=== PATIENT | male | born 1990 | race Two or more races ===

== ENCOUNTER 2024-03-19 18:01 | Observation (INO) | payer OTHER ==
[2024-03-19 18:15] VITALS: BMI 31.9
[2024-03-19] MEDS ORDERED: IBUPROFEN 600 MG TABLET (FP) PO ONE (18:52)
[2024-03-19] MEDS ORDERED: ACETAMINOPHEN 500 MG TABLET (FP) ONE (18:53)
[2024-03-19] MEDS: ACETAMINOPHEN 500 MG TABLET (FP) PO ONE (18:53)
[2024-03-19] MEDS: IBUPROFEN 600 MG TABLET (FP) PO ONE (18:55)
[2024-03-19 18:58] LABS: BASO % 0.5 % (0-2.0); EOS % 0.1 % (0-4.5); HEMATOCRIT 44.1 % (35.4-49); HEMOGLOBIN 15.4 GM/dL (11.7-16.9); LYMPH % 16.7 % (8-40); MCH 30.8 pg (25.7-33.7); MCHC 34.9 g/dl (32.0-35.9); MEAN CELL VOLUME 88.1 fl (80-96); MEAN PLT VOLUME 10.1 fl (7.5-11.1); MONO % 7.5 % (3.8-10.2); NEUT % 75.2 % (42.8-82.8); PLATELET COUNT 183 10^3/uL (134-434); RBC 5.01 M/mm3 (4.00-5.60); RDW 13.4 % (11.9-15.9); WHITE BLOOD COUNT 9.7 K/mm3 (4.0-10.0)
[2024-03-19 19:17] LABS: POTASSIUM 3.3 mmol/L (3.5-5.1)
[2024-03-19 19:18] LABS: CALCIUM 9.4 mg/dL (8.5-10.1)
[2024-03-19 19:19] LABS: ALBUMIN 3.9 g/dl (3.4-5.0); BLOOD UREA NITROGEN 15.4 mg/dL (7-18)
[2024-03-19 19:22] LABS: CREATININE 1.4 mg/dL (0.55-1.3)
[2024-03-19 19:23] LABS: BILIRUBIN,TOTAL 0.6 mg/dL (0.2-1); TOT PROT 7.8 g/dl (6.4-8.2)
[2024-03-19] MEDS ORDERED: CEFTRIAXONE 1 G/50 ML PREMIX 50 ML IVPB ONE (19:55)
[2024-03-19] MEDS: CEFTRIAXONE 1 GM in DEXTROSE 5%-WATER - 100 ML IVPB ONE (20:04)
[2024-03-19] MEDS: SODIUM CHLORIDE 1,000 ML IV STA (20:04)
[2024-03-19] MEDS ORDERED: AZITHROMYCIN IVPB 500 MG/250 ML BAG IVPB ONE (20:15)
[2024-03-19] MEDS: AZITHROMYCIN IVPB 500 MG in DEXTROSE 5%-WATER - 250 ML IVPB ONE (20:22)
[2024-03-19 20:36] LABS: PH,URINE 6.5 (5.0-8.0); URINE APPEARANCE CLEAR; URINE BILIRUBIN NEGATIVE (NEGATIVE); URINE COLOR YELLOW; URINE GLUCOSE (UA) NEGATIVE (NEGATIVE); URINE KETONE TRACE (NEGATIVE); URINE LEUK ESTERASE NEGATIVE (NEGATIVE); URINE NITRITE NEGATIVE (NEGATIVE); URINE PROTEIN 2+ (NEGATIVE); URINE UROBILINOGEN 0.2 mg/dL (0.2-1.0)
[2024-03-19 20:39] LABS: EPI CELLS 1.2 /uL (0-25.1); URINE RBC 12.1 /uL (0-23.9); URINE WBC 1.2 /uL (0-25.8)
[2024-03-19 20:40] LABS: URINE BACTERIA 2.8 /uL (0-1359)
[2024-03-20 00:53] LABS: HIV INTERPRETATION NEGATIVE (NEGATIVE)
[2024-03-20] MEDS: POTASSIUM CHLORIDE ORAL LIQUID 20 MEQ/15 ML PO ONE (03:29)
[2024-03-20] MEDS: HEPARIN NA (PORCINE) 5,000 UNITS/ML 1ML VIAL SQ SCH (05:28)
[2024-03-20] MEDS: SODIUM CHLORIDE 1,000 ML IV SCH (06:34)
[2024-03-20] MEDS ORDERED: ALBUTEROL SO4 2.5/IPRATROPIUM 0.5 INH SOL 3 ML VIAL.NEB. NEB PRN (07:45)
[2024-03-20 08:44] LABS: BASO % 0.4 % (0-2.0); EOS % 0.3 % (0-4.5); HEMATOCRIT 42.6 % (35.4-49); HEMOGLOBIN 14.4 GM/dL (11.7-16.9); LYMPH % 14.1 % (8-40); MCH 30.3 pg (25.7-33.7); MCHC 33.8 g/dl (32.0-35.9); MEAN CELL VOLUME 89.7 fl (80-96); MEAN PLT VOLUME 10.6 fl (7.5-11.1); MONO % 6.9 % (3.8-10.2); NEUT % 78.3 % (42.8-82.8); PLATELET COUNT 186 10^3/uL (134-434); RBC 4.75 M/mm3 (4.00-5.60); RDW 13.3 % (11.9-15.9); WHITE BLOOD COUNT 8.2 K/mm3 (4.0-10.0)
[2024-03-20 09:10] LABS: POTASSIUM 4.1 mmol/L (3.5-5.1)
[2024-03-20 09:12] LABS: ALBUMIN 3.6 g/dl (3.4-5.0); CALCIUM 9.3 mg/dL (8.5-10.1)
[2024-03-20 09:13] LABS: MAGNESIUM 2.2 mg/dL (1.8-2.4)
[2024-03-20 09:16] LABS: CREATININE 1.1 mg/dL (0.55-1.3)
[2024-03-20 09:17] LABS: BILIRUBIN,TOTAL 0.6 mg/dL (0.2-1); PHOSPHOROUS 2.7 mg/dL (2.5-4.9); TOT PROT 7.3 g/dl (6.4-8.2)
[2024-03-20] MEDS ORDERED: amLODIPine BESYLATE 5 MG TABLET (FP) PO SCH (10:00)
[2024-03-20] MEDS: POTASSIUM CHLORIDE ORAL LIQUID 20 MEQ/15 ML PO SCH (12:08)
[2024-03-20 15:24] LABS: HIV INTERPRETATION NEGATIVE (NEGATIVE)
[2024-03-20] MEDS: AZITHROMYCIN IVPB 250 MG in DEXTROSE 5%-WATER - 250 ML IVPB SCH (20:56)
[2024-03-20] MEDS: CEFTRIAXONE 1 G/50 ML PREMIX 50 ML IVPB SCH (21:00)
[2024-03-21 07:42] LABS: POTASSIUM 4.2 mmol/L (3.5-5.1)
[2024-03-21 07:46] LABS: ALBUMIN 3.5 g/dl (3.4-5.0); BLOOD UREA NITROGEN 11.6 mg/dL (7-18); CALCIUM 9.8 mg/dL (8.5-10.1)
[2024-03-21 07:51] LABS: BILIRUBIN,TOTAL 0.6 mg/dL (0.2-1); TOT PROT 7.7 g/dl (6.4-8.2)
[2024-03-21 13:41] VITALS: RESP 18
[2024-03-21 16:35] VITALS: BP 142/88; PULSE 88; TEMP 98.2
[2024-03-21] MEDS: AMOX TR/POT CLAV 875MG/125MG TABLETS (FP) PO SCH (16:59)
== END 2024-03-21 18:28 | disposition home or self-care (01) ==
LOC: JER 18:01 → INTOOBSV 19:59 → JERBED 19:59 → J7W 23:27
PROVIDERS: ADMIT Internal Medicine; ATTEND Nurse Practitioner Family
PROC: 3E03329 Introduction of Other Anti-infective into Peripheral Vein, Percutaneous Approach (ICD-10-PCS; principal; 2024-03-19)
PROC: 3E023GC Introduction of Other Therapeutic Substance into Muscle, Percutaneous Approach (ICD-10-PCS; 2024-03-19)
PROC: 3E0337Z Introduction of Electrolytic and Water Balance Substance into Peripheral Vein, Percutaneous Approach (ICD-10-PCS; 2024-03-19)
DX: J18.9 Pneumonia, unspecified organism (principal); N17.9 Acute kidney failure, unspecified; E86.0 Dehydration; R79.89 Other specified abnormal findings of blood chemistry; M62.82 Rhabdomyolysis; R74.01 Elevation of levels of liver transaminase levels
CPT/HCPCS: 0241U-QW; 36415; 71046-TC-FY; 71250-TC; 76700-TC; 80053; 81003; 82550; 82553; 82570; 83735; 84100; 84156; 85025; 86160; 86162; 86480; 86704; 86708; 86803; 87070; 87086; 87205; 87340; 87389; 87517; 87899; 93005; 93010; 96361; 96365; 96366; 96368; 96372; 99285-25; G0378; J1644